=== PATIENT | male | born 1965 | race African-American/Black ===

== ENCOUNTER 2016-05-26 13:45 | Emergency (ER) | payer SELFPAY ==
--- NOTE | 2016-05-26 14:05 | ER Document Report ---
ED Medical Screen (RME) - General Stated Complaint: CHEST PAIN,COUGH,SORE THROAT Time seen by provider: 14:04 Mode of Arrival: Ambulatory Information source: Patient Notes: 50-year-old male presents to ED for cough congestion runny nose last until he had a fever was last week chest discomfort from all the coughing. I have greeted and performed a rapid initial assessment of this patient. A comprehensive ED assessment and evaluation of the patient, analysis of test results and completion of medical decision making process will be conducted by an additional ED providers. TRAVEL OUTSIDE OF THE [place] IN LAST 30 DAYS: No - Related Data Allergies/Adverse Reactions: No Known Allergies Allergy (Verified 06/15/11 15:58) Past Medical History - Past Medical History Cardiac Medical History: Reports: Hx Hypertension Pulmonary Medical History: Reports: Hx Asthma - Immunizations Hx Diphtheria, Pertussis, Tetanus Vaccination: Yes - 2010 Physical Exam - Vital signs Vitals: Temp Pulse Resp BP Pulse Ox 97.4 F 108 H 20 151/96 H 98 05/26/16 13:55 05/26/16 13:55 05/26/16 13:55 05/26/16 13:55 05/26/16 13:55 Course - Vital Signs Vital signs: Temp Pulse Resp BP Pulse Ox 97.4 F 108 H 20 151/96 H 98 05/26/16 13:55 05/26/16 13:55 05/26/16 13:55 05/26/16 13:55 05/26/16 13:55
[2016-05-26] MEDS ORDERED: ASPIRIN 81 MG TABLET, CHEWABLE PO ONE (14:07)
--- NOTE | 2016-05-26 14:26 | ER Document Report ---
ED General - General Chief Complaint: Flu Symptoms Stated Complaint: CHEST PAIN,COUGH,SORE THROAT Mode of Arrival: Ambulatory Information source: Patient Notes: Patient presents to the emergency department with complaints of cough sore throat, headache cold symptoms for the past 2 weeks. He reports chest pain mostly on his left side for the last 2 days, especially when he lays on his left side. reports he hasn't been sleeping at all for the last 2 nights. Denies fever and diarrhea but reports he's been vomiting/gagging from the cough. Patient also reports he has a bad headache. Denies history of cardiac disease. Reports history of high blood pressure. Also reports brother with pacemaker at the age of 5858 years old. Father from prostate cancer. Patient does smoke and is overweight. TRAVEL OUTSIDE OF THE [place] IN LAST 30 DAYS: No - HPI Onset: Other - cough 2 weeks, cp 2 days Quality of pain: Achy Pain Level: 4 - CORREIA Associated symptoms: Chest pain, Nonproductive cough, Headache, Sore throat Exacerbated by: Denies Relieved by: Denies Similar symptoms previously: No Recently seen / treated by doctor: No - Related Data Allergies/Adverse Reactions: No Known Allergies Allergy (Verified 05/26/16 14:07) Past Medical History - General Information source: Patient - Social History Smoking Status: Current Every Day Smoker Cigarette use (# per day): Yes - 1PPW Chew tobacco use (# tins/day): No Frequency of alcohol use: None Drug Abuse: None Family History: CAD - BROTHER, Malignancy Patient has suicidal ideation: No Patient has homicidal ideation: No - Past Medical History Cardiac Medical History: Reports: Hx Hypertension Pulmonary Medical History: Reports: Hx Asthma Renal/ Medical History: Denies: Hx Peritoneal Dialysis - Immunizations Hx Diphtheria, Pertussis, Tetanus Vaccination: Yes - 2010 Review of Systems - Review of Systems Notes: Review HPI for review of systems., All other systems negative Physical Exam - Vital signs Vitals: Temp Pulse Resp BP Pulse Ox 97.4 F 108 H 20 151/96 H 98 05/26/16 13:55 05/26/16 13:55 05/26/16 13:55 05/26/16 13:55 05/26/16 13:55 - Notes Notes: PHYSICAL EXAMINATION: GENERAL: Well-appearing and in no acute distress HEAD: Atraumatic, normocephalic. EYES: Pupils equal round , extraocular movements intact, sclera anicteric, conjunctiva are normal. ENT: nares patent, oropharynx clear without exudates. Moist mucous membranes. NECK: Normal range of motion, supple without lymphadenopathy LUNGS: CTAB and equal. No wheezes rales or rhonchi. HEART: Regular rate and rhythm without murmurs ABDOMEN: Soft, no tenderness. No guarding, no rebound EXTREMITIES: Normal range of motion, no pitting edema. No cyanosis. NEUROLOGICAL: Cranial nerves grossly intact. Normal sensory/motor exams. PSYCH: Normal mood, normal affect. SKIN: Warm, Dry, normal turgor, no rashes or lesions noted Course - Re-evaluation Re-evalutation: 05/26/16 17:53 Pt waiting on second troponin, denies cp. 05/26/16 18:24 I have consulted the attending provider dr namita zaragoza per [facility] guidelines 05/26/16 19:04 dr zaragoza in to assess patient. reports if second troponin neg, dc patient, fu with pcp 05/26/16 19:23 second troponin neg. Presentation of chest pain in an otherwise well-appearing patient. Low clinical suspicion for ACS given the clinical history, exam, EKG without ST elevation or depressions, and negative initial troponin. Heart score less than or equal to 3. PE also seems unlikely given the clinical history, absence of tachycardia or dyspnea. Patient's PERC criteria is negative. Chest x-ray without evidence of pneumothorax or pneumonia. No widened mediastinum. Inferior dissection also seems unlikely given history, symmetric pulses, chest x -ray and vitals. Given the reassuring evaluation, will plan for discharge home at this time with return precautions and follow-up recommendations. Patient has been instructed to return if symptoms worsen or change in any way. HEART score- 3 History= 0 ECG = SAT Age =1 Risk Factors= 2 Troponin= 0 Total 3 Chest pain in a patient without evidence of cardiac or other serious etiology during the workup today. I discussed with patient that based on age, risk factors and emergency department testing, the likelihood that his symptoms are related to his heart is very low (estimated risk of heart attack or over the next 30 days of less than 1% ). The patient demonstrates decision-making capacity and has verbalized an understanding of these risks to me. Based on this, the patient was instructed to follow-up up as an outpatient. Usual chest pain return precautions reviewed. Patient verbalized understanding. - Vital Signs Vital signs: Temp Pulse Resp BP Pulse Ox 97.9 F 108 H 23 H 153/98 H 96 05/26/16 17:14 05/26/16 13:55 05/26/16 19:01 05/26/16 19:01 05/26/16 19:01 - Laboratory Result Diagrams: 05/26/16 14:54 05/26/16 14:54 Laboratory results interpreted by me: 05/26/16 05/26/16 14:54 15:53 Creatine Kinase 251 H Urine Protein 100 H - Diagnostic Test Radiology reviewed: Image reviewed, Reports reviewed - IMPRESSION: NO SIGNIFICANT RADIOGRAPHIC FINDING IN THE CHEST. - EKG Interpretation by Me Rate: Tachycardia When compared to previous EKG there are: No significant change Discharge - Discharge Clinical Impression: Cough, Sore throat, Elevated blood pressure reading, chest pain of unclear cause Condition: Stable Disposition: HOME, SELF-CARE Instructions: Acetaminophen, Sore Throat ([facility]), Family Physicians / Practices, Chest Pain of Unclear Cause ([facility]) Additional Instructions: *You have been evaluated for a cough, sore throat, chest pain of unclear cause *Quit smoking *Warm salt water gargles and throat lozenges for comfort for your sore throat *Monitor your blood pressure. Your blood pressure was elevated today. This may be because you were anxious, in pain or because you need medication. It is important to follow up with your primary care provider for full evaluation. *Follow-up with a primary care provider this week for evaluation and recheck *Return to ED for worsening condition change, needs Forms: Elevated Blood Pressure, Smoking Cessation Education, Return to Work
[2016-05-26] MEDS ORDERED: IBUPROFEN 800 MG TABLET PO ONE (14:43)
[2016-05-26 15:09] LABS: ABSOLUTE BASOPHILS # (AUTO) 0.1 10^3/uL (0.0-0.2); ABSOLUTE EOSINOPHILS # (AUTO) 0.1 10^3/uL (0.0-0.6); ABSOLUTE LYMPHOCYTES (AUTO) 2.3 10^3/uL (0.5-4.7); ABSOLUTE MONOCYTES (AUTO) 1.3 10^3/uL (0.1-1.4); ABSOLUTE NEUT (AUTO) 6.6 10^3/uL (1.7-8.2); BASOPHILS % (AUTO) 0.6 % (0-2); EOSINOPHILS % (AUTO) 1.2 % (0-6); HEMATOCRIT 42.6 % (37.9-51.0); HEMOGLOBIN 14.2 g/dL (13.5-17.0); LYMPHOCYTES % (AUTO) 22.3 % (13-45); MEAN CORPUSCULAR HGB CONC 33.2 g/dL (32.0-36.0); MEAN CORPUSCULAR VOLUME 84 fl (80-97); MONOCYTES % (AUTO) 12.4 % (3-13); RED BLOOD COUNT 5.06 10^6/uL (4.35-5.55); RED CELL DISTRIBUTION WIDTH 12.9 % (11.5-14.0); SEGMENTED NEUTROPHILS % (AUTO) 63.5 % (42-78); WHITE BLOOD COUNT 10.4 10^3/uL (4.0-10.5)
[2016-05-26 15:28] LABS: ALANINE AMINOTRANSFERASE 39 U/L (21-72); ALBUMIN 4.5 g/dL (3.5-5.0); ALKALINE PHOSPHATASE 77 U/L (38-126); ANION GAP 11 (5-19); ASPARTATE AMINO TRANSFERASE 22 U/L (17-59); BILIRUBIN,TOTAL 0.7 mg/dL (0.2-1.3); BLOOD UREA NITROGEN 13 mg/dL (7-20); CALCIUM 9.8 mg/dL (8.4-10.2); CARBON DIOXIDE 27 mmol/L (22-30); CHLORIDE 103 mmol/L (98-107); CREATINE KINASE 251 U/L (55-170); CREATININE RESULT 1.25 mg/dL (0.52-1.25); GLUCOSE 103 mg/dL (75-110); POTASSIUM 4.2 mmol/L (3.6-5.0); SODIUM 140.9 mmol/L (137-145)
[2016-05-26 15:40] LABS: CREATINE KINASE MB 0.34 ng/mL (<4.55); TROPONIN I < 0.012 ng/mL
[2016-05-26 16:15] LABS: APPEARANCE,URINE CLEAR; BILIRUBIN,URINE NEGATIVE (NEGATIVE); GLUCOSE, URINE NEGATIVE (NEGATIVE); KETONES,URINE NEGATIVE (NEGATIVE); LEUKOCYTE ESTERASE,URINE NEGATIVE (NEGATIVE); NITRITE,URINE NEGATIVE (NEGATIVE); PROTEIN,URINE 100 mg/dL (NEGATIVE); URINE SPECIFIC GRAVITY 1.023; UROBILINOGEN,URINE NEGATIVE mg/dL (<2.0)
--- NOTE | 2016-05-26 17:41 | EKG REPORT ---
SEVERITY:- ABNORMAL ECG - SINUS TACHYCARDIA LEFT ANTERIOR FASCICULAR BLOCK LEFT VENTRICULAR HYPERTROPHY : Confirmed by: Penny Up MD 26-May-2016 17:39:43
[2016-05-26 19:13] VITALS: BP 153/98
== END 2016-05-26 19:42 | disposition home or self-care (01) ==
LOC: ER 13:45
DX: R07.9 Chest pain, unspecified (principal); R05 Cough; J02.9 Acute pharyngitis, unspecified; R51 Headache; R00.0 Tachycardia, unspecified; I10 Essential (primary) hypertension; J45.909 Unspecified asthma, uncomplicated; F17.210 Nicotine dependence, cigarettes, uncomplicated; E66.3 Overweight; Z68.32 Body mass index [BMI] 32.0-32.9, adult; Z82.49 Family history of ischemic heart disease and other diseases of the circulatory system
CPT/HCPCS: 36415; 71020; 80053; 81001; 82550; 82553; 84484; 85025; 87070; 87880; 93005; 93010; 99284

== ENCOUNTER 2017-04-14 11:31 | Emergency (ER) | payer OTHER ==
[2017-04-14 11:44] VITALS: BP 142/94
[2017-04-14] MEDS ORDERED: IBUPROFEN 800 MG TABLET PO ONE (13:11)
--- NOTE | 2017-04-14 13:18 | ER Document Report ---
ED Extremity Problem, Upper - General Chief Complaint: Shoulder Pain Stated Complaint: SHOULDER PAIN Time Seen by Provider: 04/14/17 12:51 Mode of Arrival: Ambulatory Information source: Patient Notes: 51-year-old male presents to ED for complaint of left shoulder pain. He states he was picking his 4-year-old child up in his car seat out of the backseat of the car about a month ago and injured his arm. He states his pain has continued since then and he has not been to a doctor to get it checked out yet. He is able to move his arm around but when he tries to pick anything up it hurts. He is alert oriented no acute distress at this time. He is speaking in full sentences walks with a steady gait. TRAVEL OUTSIDE OF THE [place] IN LAST 30 DAYS: No - HPI Patient complains to provider of: Left, Shoulder Onset: Other - Month ago Recent injury: Possibly Where: Home, Outdoors Quality of pain: Sharp Severity of pain: Persistent Pain Level: 5 Context: Other - Lifting a 4-year-old child out of the car - Related Data Allergies/Adverse Reactions: No Known Allergies Allergy (Verified 05/26/16 14:07) Past Medical History - General Information source: Patient - Social History Smoking Status: Former Smoker - Uses a vapor cigarettes now Cigarette use (# per day): No Chew tobacco use (# tins/day): No Smoking Education Provided: No Frequency of alcohol use: Social Drug Abuse: None Lives with: Family Family History: Arthritis, CAD - BROTHER, Hyperlipidemia, Hypertension, Malignancy, Thyroid Disfunction. denies: COPD, CVA, DM - Past Medical History Cardiac Medical History: Reports: Hx Hypertension Pulmonary Medical History: Reports: Hx Asthma EENT Medical History: Reports: None Neurological Medical History: Reports: None Endocrine Medical History: Reports: None Renal/ Medical History: Reports: None Malignancy Medical History: Reports None GI Medical History: Reports: None Musculoskeltal Medical History: Reports None Skin Medical History: Reports None Psychiatric Medical History: Reports: None Traumatic Medical History: Reports: None Infectious Medical History: Reports: None Surgical Hx: Negative Past Surgical History: Reports: None - Immunizations Immunizations up to date: Yes Hx Diphtheria, Pertussis, Tetanus Vaccination: Yes - 2010 Review of Systems - Review of Systems Constitutional: No symptoms reported EENT: No symptoms reported Cardiovascular: No symptoms reported Respiratory: No symptoms reported Gastrointestinal: No symptoms reported Genitourinary: No symptoms reported Male Genitourinary: No symptoms reported Musculoskeletal: Other - Shoulder pain Skin: No symptoms reported Hematologic/Lymphatic: No symptoms reported Neurological/Psychological: No symptoms reported -: Yes All other systems reviewed and negative Physical Exam - Vital signs Vitals: Temp Pulse Resp BP Pulse Ox 98.2 F 92 14 142/94 H 96 04/14/17 11:43 04/14/17 11:43 04/14/17 11:43 04/14/17 11:43 04/14/17 11:43 Interpretation: Normal - General General appearance: Appears well, Alert - HEENT Head: Normocephalic, Atraumatic Eyes: Normal Pupils: PERRL - Respiratory Respiratory status: No respiratory distress Chest status: Nontender Breath sounds: Normal Chest palpation: Normal - Cardiovascular Rhythm: Regular Heart sounds: Normal auscultation Murmur: No - Abdominal Inspection: Normal Distension: No distension Bowel sounds: Normal Tenderness: Nontender Organomegaly: No organomegaly - Back Back: Normal, Nontender - Extremities General upper extremity: Normal inspection, Nontender, Normal color, Normal ROM , Normal temperature General lower extremity: Normal inspection, Normal color, Normal ROM, Normal temperature, Normal weight bearing. No: Girish's sign Shoulder: Tender - Just in front of the left shoulder. No: Limited ROM - Pain with range of motion to just in front of the left shoulder - Neurological Neuro grossly intact: Yes Cognition: Normal Orientation: AAOx4 Ramya Coma Scale Eye Opening: Spontaneous [place] Coma Scale Verbal: Oriented [place] Coma Scale Motor: Obeys Commands [place] Coma Scale Total: 15 Speech: Normal Motor strength normal: LUE, RUE, LLE, RLE Sensory: Normal - Psychological Associated symptoms: Normal affect, Normal mood - Skin Skin Temperature: Warm Skin Moisture: Dry Skin Color: Normal Course - Re-evaluation Re-evalutation: 04/14/17 13:18 Left shoulder x-ray ordered and patient treated with ibuprofen and will reevaluate after the test are completed. 04/14/17 14:24 Discussed x-ray with patient. Patient was offered a prescription of ibuprofen and he refused. Patient was instructed on use of ice shoulder exercises and to follow-up with the orthopedic. Patient was discharged home. - Vital Signs Vital signs: Temp Pulse Resp BP Pulse Ox 98.2 F 92 14 142/94 H 96 04/14/17 11:43 04/14/17 11:43 04/14/17 11:43 04/14/17 11:43 04/14/17 11:43 - Diagnostic Test Radiology reviewed: Image reviewed, Reports reviewed Discharge - Discharge Clinical Impression: Injury of left shoulder Qualifiers: Encounter type: initial encounter Qualified Code(s): S49.92XA - Unspecified injury of left shoulder and upper arm, initial encounter Condition: Stable Disposition: HOME, SELF-CARE Additional Instructions: Shoulder Injury You have injured your shoulder. This usually results from stretching or tearing of the tendons during trauma. Time and protection are required in order to heal properly. Many injuries are quite disabling, and should be taken seriously. Initial treatment includes cold packs and a sling to rest the shoulder. The physician has assessed the seriousness of your injury, and has outlined a treatment plan. Understand that this treatment may change, depending on how you progress. If a re-examination was recommended, it is important that you follow up as instructed. Some shoulder injuries (such as partial tear of the rotator cuff) are only suspected after you've failed to improve. Call us if there's severe pain, numbness, or loss of function. Exercise Program for the Shoulder Since the shoulder moves in so many directions, the joint attachment is weak. Muscles provide most of the stability to the shoulder. You must exercise your shoulder to prevent painful instability or stiffening. PASSIVE - These may be begun within a few days of the injury. While standing, lean forward, allowing the arm to hang down towards the floor. Move the arm in small circles while slowly twisting your chest towards and away from the hanging arm. Do this for one minute. ACTIVE - These may be performed when the doctor gives permission. Begin with the arms at the sides. Raise the arms forward (shoulder's width apart) until they reach shoulder level. Then slowly swing both arms back until they are aiming straight out away from each other. Then bring them forward again, and finally, lower them to your sides. Repeat 20 to 30 times. As you improve, put weights in your hands for the exercise. Start with one pound, and work up to 10 pounds. Never use more than is comfortable. Athletes may work up to 30 pounds. USE OF MTHN-YKE-ATBCTOO IBUPROFEN: Ibuprofen (Advil, Nuprin, Medipren, Motrin IB) is a medication for fever and pain control. In addition, it has anti- inflammatory effects which may be beneficial, especially in the treatment of injuries. It's best to take ibuprofen with food. Persons with ulcer disease or allergy to aspirin should notify their physician of this before taking ibuprofen. Ibuprofen can be given every four to six hours, for a total of four doses daily. Age Pain or fever dose Antiinflammatory dose 6-8 yr 200 mg (1 tab) 200 mg (1 tab) 9-11 yr 200 mg (1 tab) 200-400 mg (1-2 tab) 11-14 yr 200-400 mg (1-2 tab) 400 mg (2 tab) 15-adult 400 mg (2 tab) 600 mg (3 tab) Ice Packs Apply ice packs frequently against the painful area. Many different schedules are recommended, such as "20 minutes on, 20 minutes off" or "one hour ice, two hours rest." If you need to work, you may need to go longer between ice treatments. You should plan to have the area ice packed AT LEAST one fourth of the time. The ice should be applied over the wrap, tape, or splint, or over a layer of cloth -- not directly against the skin. Some ice bags have a built-in cloth and can be put directly on the skin. FOLLOW-UP CARE: If you have been referred to a physician for follow-up care, call the physician s office for an appointment as you were instructed or within the next two days. If you experience worsening or a significant change in your symptoms, notify the physician immediately or return to the Emergency Department at any time for re-evaluation. Forms: Elevated Blood Pressure Referrals: NURIS PARKER DO [ACTIVE STAFF] - Follow up as needed
--- NOTE | 2017-04-14 13:30 | RADIOLOGY REPORT (SQ) ---
EXAM DESCRIPTION: SHOULDER LEFT 2 OR MORE VIEWS COMPLETED DATE/TIME: 04/14/2017 1:22 pm REASON FOR STUDY: pain in shoulder area COMPARISON: None. NUMBER OF VIEWS: Three views. TECHNIQUE: Internal rotation, external rotation, and Y view images acquired of the left shoulder. LIMITATIONS: None. FINDINGS: MINERALIZATION: Normal. BONES: No acute fracture or dislocation. No worrisome bone lesions. JOINTS: No dislocation. VISUALIZED LUNGS AND RIBS: No pneumothorax. No rib fracture. SOFT TISSUES: No radiopaque foreign body. OTHER: No other significant finding. IMPRESSION: NEGATIVE STUDY OF THE LEFT SHOULDER. NO RADIOGRAPHIC EVIDENCE OF ACUTE INJURY. TECHNICAL DOCUMENTATION: JOB ID: [id number] [employer]- All Rights Reserved
== END 2017-04-14 14:25 | disposition home or self-care (01) ==
LOC: ER 11:31
DX: S49.92XA Unspecified injury of left shoulder and upper arm, initial encounter (principal); M25.512 Pain in left shoulder; X58.XXXA Exposure to other specified factors, initial encounter; I10 Essential (primary) hypertension; J45.909 Unspecified asthma, uncomplicated; F17.290 Nicotine dependence, other tobacco product, uncomplicated
CPT/HCPCS: 99283

== ENCOUNTER → 2017-04-27 | Outpatient (CLI) | payer OTHER ==
--- NOTE | 2017-04-27 14:55 | RADIOLOGY REPORT (SQ) ---
EXAM DESCRIPTION: MRI LT UPPER JOINT WITHOUT COMPLETED DATE/TIME: 04/27/2017 2:33 pm REASON FOR STUDY: LEFT SHOULDER PAIN M25.512 PAIN IN LEFT SHOULDER COMPARISON: Recent radiographs. TECHNIQUE: Left shoulder images acquired and stored on PACS. Multiplanar imaging to include fat sens itive sequences such as T1, water sensitive sequences such as FST2/STIR, cartilage sensitive sequence s such as FSPD/gradient-echo sequences. LIMITATIONS: None. FINDINGS: BONE MARROW AND CORTEX: No worrisome bone lesions or marrow replacement. No occult fractur es. JOINT OR BURSAL EFFUSION: No significant joint or bursal fluid. No suggestion of loose bodies. GLENO-HUMERAL ARTICULATION: Normal articulation. No subluxation. No cystic change. No osteophytes or cartilage loss. ACROMION AND AC JOINT: No widening. Mild -moderate degenerative arthropathy with associated predom inately dorsal overgrowth. Type 2 acromion without mukund subacromial compromise or spurring. ROTATOR CUFF AND INTERVAL: Mild cuff tendinosis is suggested. No high-grade partial or full-thicknes s tear detected, however. No cuff muscle atrophy. Mild scar/edema may be present in the rotator interval. This can be associated with adhesive capsuli tis. LABRUM AND BICEPS LABRAL COMPLEX: Abnormal heterogeneous signal in the superior labrum and biceps a nchor, relatively macerated appearance. Long head biceps tendon intact. REMAINDER OF LABRUM AND IGHL : Probable tear with abnormal focal hyperintense T2 signal along the ant erior inferior labrum. PERIARTICULAR AND ADJACENT SOFT TISSUES: No masses or abnormal nodes. OTHER: No other significant finding. IMPRESSION: 1. No high-grade partial or full thickness cuff tear. 2. Labral findings as above. Fitzgerald spect slap tear in the anterior inferior labral tear. Biceps tendon intact. TECHNICAL DOCUMENTATION: JOB ID: [id number] [employer]- All Rights Reserved
== END ==
LOC: RAD 13:37
PROVIDERS: ATTEND Physician Assistant Medical
DX: M25.512 Pain in left shoulder (principal)

== ENCOUNTER 2018-02-22 17:18 | Emergency (ER) | payer OTHER ==
[2018-02-22 17:24] VITALS: BP 162/94
--- NOTE | 2018-02-22 18:06 | ER Document Report ---
ED ENT - General Mode of Arrival: Ambulatory Information source: Patient TRAVEL OUTSIDE OF THE [place] IN LAST 30 DAYS: No - General Chief Complaint: Ear Pain Stated Complaint: EAR PAIN Time Seen by Provider: 02/22/18 17:59 Notes: 52-year-old male who presents to the emergency department today with complaints of right-sided ear and facial pain. Patient states the pain is exacerbated with chewing, opening and closing of the jaw, and when lying down to sleep at night. Patient has had these symptoms for approximately 2 weeks. Patient has associated nasal congestion. Patient states it is "hard to swallow liquids sometimes" but denies any difficulty with swallowing solids. (MIGUEL A LEOS) - Related Data Allergies/Adverse Reactions: No Known Allergies Allergy (Verified 05/26/16 14:07) Past Medical History - General Information source: Patient - Social History Smoking Status: Current Every Day Smoker Cigarette use (# per day): Yes Chew tobacco use (# tins/day): No Frequency of alcohol use: Occasional Drug Abuse: None Lives with: Family Family History: Arthritis, CAD - BROTHER, Hyperlipidemia, Hypertension, Malignancy, Thyroid Disfunction Patient has suicidal ideation: No Patient has homicidal ideation: No - Past Medical History Cardiac Medical History: Reports: Hx Hypertension Pulmonary Medical History: Reports: Hx Asthma Surgical Hx: Negative - Immunizations Immunizations up to date: Yes Hx Diphtheria, Pertussis, Tetanus Vaccination: Yes - 2010 Review of Systems - Review of Systems Constitutional: No symptoms reported EENT: See HPI, Ear pain - right, Nose congestion Cardiovascular: No symptoms reported Respiratory: No symptoms reported Gastrointestinal: No symptoms reported Genitourinary: No symptoms reported Male Genitourinary: No symptoms reported Musculoskeletal: No symptoms reported Skin: No symptoms reported Hematologic/Lymphatic: No symptoms reported Neurological/Psychological: No symptoms reported -: Yes All other systems reviewed and negative Physical Exam - Vital signs Vitals: Temp Pulse Resp BP Pulse Ox 97.5 F 96 17 162/94 H 99 02/22/18 17:22 02/22/18 17:22 02/22/18 17:22 02/22/18 17:22 02/22/18 17:22 - Notes Notes: PHYSICAL EXAM GENERAL: Alert, interacts well. No acute distress. HEAD: Normocephalic, atraumatic. EYES: Pupils equal, round, and reactive to light. Extraocular movements intact. ENT: Oral mucosa moist, tongue midline. No posterior oropharynx erythema or exudate. Clear fluid behind the right TM with air bubbles and bulging without erythema. Clear fluid behind left TM without erythema. Right-sided turbinate edema. NECK: Full range of motion. Supple. Trachea midline. LUNGS: No respiratory distress. EXTREMITIES: Moves all 4 extremities spontaneously. NEUROLOGICAL: Alert and oriented x3. Normal speech. PSYCH: Normal affect, normal mood. SKIN: Warm, dry, normal turgor. No rashes or lesions noted. (MIGUEL A LEOS) Course - Re-evaluation Re-evalutation: 02/22/18 18:54 No evidence of acute infection, no indication for antibiotics, prescribed decongestants and nasal steroids. Counseled on rechecking his blood pressure when he is not anxious and in pain. Discharged home. (RADHA LEROY) - Vital Signs Vital signs: Temp Pulse Resp BP Pulse Ox 97.5 F 96 17 162/94 H 99 02/22/18 17:22 02/22/18 17:22 02/22/18 17:22 02/22/18 17:22 02/22/18 17:22 Discharge - Discharge Clinical Impression: Right ear pain, Acute serous otitis media of right ear without rupture Condition: Stable Disposition: HOME, SELF-CARE Additional Instructions: You have fluid in your right ear, there is no evidence of infection. Please use pseudoephedrine as directed on the box during the day as a decongestant and use Benadryl (diphenhydramine) at night as a decongestant to help this to drain. Please also use nasal steroid such as Nasonex 1 squirt per nostril twice a day to help decrease the swelling in your nose and allow your ear to drain. Return to the emergency department should you have fluid draining out of your ear, increasing pain, fevers or any new or concerning symptoms. Prescriptions: Mometasone Furoate [Nasonex] 1 spray NS Q12 #1 spray.pump Referrals: FLAKITO DE ANDA PA-C [Primary Care Provider] - Follow up as needed Scribe Attestation: 02/22/18 18:55 I personally performed the services described in the documentation, reviewed and edited the documentation which was dictated to the scribe in my presence, and it accurately records my words and actions. (RADHA LEROY) Scribe Documentation - Scribe Written by Facundo:: Facundo Wilson, 02/22/2018 570 acting as scribe for :: Gris
== END 2018-02-22 18:10 | disposition home or self-care (01) ==
LOC: ER 17:18
DX: H65.01 Acute serous otitis media, right ear (principal); H92.01 Otalgia, right ear; R51 Headache; R09.81 Nasal congestion; F17.210 Nicotine dependence, cigarettes, uncomplicated; I10 Essential (primary) hypertension; J45.909 Unspecified asthma, uncomplicated
CPT/HCPCS: 99282

== ENCOUNTER → 2018-03-25 | Outpatient (CLI) | payer OTHER ==
[2018-03-25 12:15] LABS: ALANINE AMINOTRANSFERASE 70 U/L (21-72); ALBUMIN 4.4 g/dL (3.5-5.0); ALKALINE PHOSPHATASE 55 U/L (38-126); ANION GAP 11 (5-19); ASPARTATE AMINO TRANSFERASE 36 U/L (17-59); BILIRUBIN,DIRECT 0.2 mg/dL (0.0-0.4); BILIRUBIN,TOTAL 0.6 mg/dL (0.2-1.3); BLOOD UREA NITROGEN 16 mg/dL (7-20); CARBON DIOXIDE 26 mmol/L (22-30); CHLORIDE 103 mmol/L (98-107); CHOLESTEROL 253.94 mg/dL (0-200); GLUCOSE 106 mg/dL (75-110); POTASSIUM 4.8 mmol/L (3.6-5.0); SODIUM 139.6 mmol/L (137-145); TOTAL PROTEIN 7.8 g/dL (6.3-8.2); TRIGLYCERIDES 158 mg/dL (<150)
[2018-03-25 12:26] LABS: DIRECT LDL 181 mg/dL (<100)
[2018-03-25 12:46] LABS: VLDL CHOLESTEROL 31.6 mg/dL (10-31)
== END ==
LOC: OD 10:59
PROVIDERS: ATTEND Family Medicine
DX: Z13.1 Encounter for screening for diabetes mellitus (principal); Z12.5 Encounter for screening for malignant neoplasm of prostate; Z13.220 Encounter for screening for lipoid disorders
CPT/HCPCS: 36415; 80053; 80061; 84153

== ENCOUNTER → 2018-04-13 | Outpatient (CLI) | payer OTHER ==
--- NOTE | 2018-04-14 00:08 | EKG REPORT ---
SEVERITY:- ABNORMAL ECG - SINUS RHYTHM LEFT ANTERIOR FASCICULAR BLOCK : Confirmed by: Merced Perkins 14-Apr-2018 00:07:43
== END ==
LOC: OD 09:14
PROVIDERS: ATTEND Orthopaedic Surgery
DX: Z01.810 Encounter for preprocedural cardiovascular examination (principal); Z01.89 Encounter for other specified special examinations
CPT/HCPCS: 93005; 93010

== ENCOUNTER → 2018-12-07 | Outpatient (CLI) | payer OTHER ==
--- NOTE | 2018-12-07 10:31 | RADIOLOGY REPORT (SQ) ---
EXAM DESCRIPTION: LUMBAR SPINE COMPLETE COMPLETED DATE/TIME: 12/07/2018 10:14 am REASON FOR STUDY: LUMBAR RADICULOPATHY M54.6 PAIN IN THORACIC SPINE COMPARISON: None. NUMBER OF VIEWS: Five views including obliques. TECHNIQUE: AP, lateral, oblique, and sacral radiographic images acquired of the lumbar spine. LIMITATIONS: None. FINDINGS: MINERALIZATION: Normal. SEGMENTATION: Normal. No transitional anatomy. ALIGNMENT: Normal. VERTEBRAE: Maintained height. No fracture or worrisome bone lesion. DISCS: Preserved height. No significant osteophytes or end plate irregularity. POSTERIOR ELEMENTS: Pedicles and facets are intact. No pars defect or posterior arch defects. HARDWARE: None in the spine. PARASPINAL SOFT TISSUES: Normal. PELVIS: Intact as visualized. No fractures or worrisome bone lesions. SI joints intact. OTHER: No other significant finding. IMPRESSION: NORMAL 5 VIEW LUMBAR SPINE. TECHNICAL DOCUMENTATION: JOB ID: [id number] [employer]- All Rights Reserved Reading location - IP/workstation name: [email or web address]
--- NOTE | 2018-12-07 10:32 | RADIOLOGY REPORT (SQ) ---
EXAM DESCRIPTION: SACRUM AND COCCYX COMPLETED DATE/TIME: 12/07/2018 10:14 am REASON FOR STUDY: LUMBAR RADICULOPATHY M54.6 PAIN IN THORACIC SPINE COMPARISON: None. NUMBER OF VIEWS: Three views. TECHNIQUE: AP, lateral, and tilt views of the sacrum and coccyx. LIMITATIONS: None. FINDINGS: MINERALIZATION: Normal. BONES: No acute fracture or dislocation. No worrisome bone lesions. SOFT TISSUES: No soft tissue swelling. No foreign body. OTHER: No other significant finding. IMPRESSION: NEGATIVE STUDY OF THE SACRUM AND COCCYX. TECHNICAL DOCUMENTATION: JOB ID: [id number] [employer]- All Rights Reserved Reading location - IP/workstation name: [email or web address]
== END ==
LOC: OD 09:55
PROVIDERS: ATTEND Family Medicine Geriatric Medicine
DX: M54.16 Radiculopathy, lumbar region (principal)
CPT/HCPCS: 72110; 72220

== ENCOUNTER → 2018-12-27 | Outpatient (CLI) | payer OTHER ==
--- NOTE | 2018-12-27 15:59 | RADIOLOGY REPORT (SQ) ---
EXAM DESCRIPTION: MRI LUMBAR SPINE WITHOUT COMPLETED DATE/TIME: 12/27/2018 2:49 pm REASON FOR STUDY: (M54.16)RADICULOPATHY, LUMBAR REGION M54.16 RADICULOPATHY, LUMBAR REGION COMPARISON: Lumbar spine five views 12/07/2018 TECHNIQUE: Sagittal and Axial imaging includes T1, T2, STIR and gradient echo sequences. Coronal T2/ HASTE imaging. LIMITATIONS: Patient would not continue the exam after sagittal imaging. No axial images FINDINGS: SEGMENTATION: No transitional anatomy. The lowest well-developed disc space is labeled L5- S1. ALIGNMENT: Anatomic. VERTEBRAE: Intact. BONE MARROW: Normal. No marrow replacement or reactive changes. DISC SIGNAL: Normal. No significant abnormal signal or loss of height. POSTERIOR ELEMENTS: Diffuse facet arthropathy is seen from L2-3 through L5-S1 HARDWARE: None in the spine. CORD AND CONUS: Normal in size and signal intensity. Conus at the L2 level. SOFT TISSUES: No aortic aneurysm seen. No bulky retroperitoneal adenopathy or mass. No paraspinal mas s or fluid. L1-L2: No significant spinal stenosis or exit foraminal stenosis. L2-L3: No significant spinal stenosis or exit foraminal stenosis. Mild bilateral facet arthropathy L3-L4: No significant spinal stenosis or exit foraminal stenosis. Moderate bilateral facet arthropat hy L4-L5: Mild diffuse posterior disc bulging and moderate bilateral facet and ligament hypertrophy caus e mild to moderate central canal narrowing. Partial effacement of the CSF around the lumbar nerve ro ots. Mild bilateral foraminal narrowing without exiting L4 nerve root impingement L5-S1: No significant spinal stenosis or exit foraminal stenosis. Moderate bilateral facet hypertrop hy LOWER THORACIC: Incompletely imaged. No stenosis seen. SACRUM: Visualized upper sacrum intact. OTHER: No other significant findings. IMPRESSION: Mild to moderate central canal stenosis at L4-5 from broad diffuse disc bulge and bulky bilateral facet and ligament hypertrophy. Limited study, patient would not continue imaging for axial images through the lumbar spine. If surg maría is contemplated in this patient, consider CT scanning of the lumbar spine TECHNICAL DOCUMENTATION: JOB ID: [id number] [employer]- All Rights Reserved Reading location - IP/workstation name: [email or web address]
== END ==
LOC: RAD 12-20 13:58
PROVIDERS: ATTEND Family Medicine
DX: M54.16 Radiculopathy, lumbar region (principal)
CPT/HCPCS: 72148

== ENCOUNTER 2019-05-24 11:43 | Emergency (ER) | payer OTHER ==
[2019-05-24 12:31] VITALS: BP 143/83
[2019-05-24] MEDS ORDERED: ASPIRIN 81 MG TABLET, CHEWABLE PO ONE ×2 (12:34→15:01)
--- NOTE | 2019-05-24 12:36 | ER Document Report ---
ED Medical Screen (RME) - General Chief Complaint: Chest Pain Stated Complaint: CHEST PAIN Time Seen by Provider: 05/24/19 12:29 Primary Care Provider: KEN BENITEZ MD [Primary Care Provider] - Follow up as needed Notes: Patient is a 53-year-old male who presents to the emergency department with a chief complaint of chest pain. His pain started at 8:00 this morning when he woke up. Describes the pain as a sharp pain on the left side of his chest. Denies any difficulty breathing. Denies any vomiting. Exam: Sinus tachycardia on twelve-lead EKG. Heart rate 103. I have greeted and performed a rapid initial assessment of this patient. A comprehensive ED assessment and evaluation of the patient, analysis of test results and completion of medical decision making process will be conducted by an additional ED providers. TRAVEL OUTSIDE OF THE [place] IN LAST 30 DAYS: No - Related Data Allergies/Adverse Reactions: No Known Allergies Allergy (Verified 05/26/16 14:07) Home Medications: Atorvastatin, Percocet Past Medical History - Past Medical History Cardiac Medical History: Reports: Hx Hypertension Pulmonary Medical History: Reports: Hx Asthma Renal/ Medical History: Denies: Hx Peritoneal Dialysis - Immunizations Immunizations up to date: Yes Hx Diphtheria, Pertussis, Tetanus Vaccination: Yes - 2010 Physical Exam - Vital signs Vitals: Temp Pulse Resp BP Pulse Ox 98.0 F 104 H 16 143/83 H 97 05/24/19 12:30 05/24/19 12:30 05/24/19 12:30 05/24/19 12:30 05/24/19 12:30 Course - Vital Signs Vital signs: Temp Pulse Resp BP Pulse Ox 98.0 F 104 H 16 143/83 H 97 05/24/19 12:30 05/24/19 12:30 05/24/19 12:30 05/24/19 12:30 05/24/19 12:30 Doctor's Discharge - Discharge Referrals: KEN BENITEZ MD [Primary Care Provider] - Follow up as needed
[2019-05-24 13:06] LABS: ABSOLUTE EOSINOPHILS # (AUTO) 0.1 10^3/uL (0.0-0.6); ABSOLUTE LYMPHOCYTES (AUTO) 2.2 10^3/uL (0.5-4.7); ABSOLUTE MONOCYTES (AUTO) 0.6 10^3/uL (0.1-1.4); ABSOLUTE NEUT (AUTO) 2.3 10^3/uL (1.7-8.2); BASOPHILS % (AUTO) 0.6 % (0-2); HEMATOCRIT 43.4 % (37.9-51.0); HEMOGLOBIN 14.8 g/dL (13.5-17.0); LYMPHOCYTES % (AUTO) 42.9 % (13-45); MEAN CORPUSCULAR HEMOGLOBIN 28.7 pg (27.0-33.4); MEAN CORPUSCULAR HGB CONC 34.1 g/dL (32.0-36.0); MEAN CORPUSCULAR VOLUME 84 fl (80-97); MONOCYTES % (AUTO) 11.2 % (3-13); PLATELET COUNT 247 10^3/uL (150-450); RED BLOOD COUNT 5.16 10^6/uL (4.35-5.55); RED CELL DISTRIBUTION WIDTH 13.1 % (11.5-14.0); SEGMENTED NEUTROPHILS % (AUTO) 44.3 % (42-78); TOTAL CELLS COUNTED % (AUTO) 100 %; WHITE BLOOD COUNT 5.2 10^3/uL (4.0-10.5)
[2019-05-24 13:27] LABS: ALBUMIN 4.4 g/dL (3.5-5.0); ALKALINE PHOSPHATASE 52 U/L (38-126); ANION GAP 8 (5-19); ASPARTATE AMINO TRANSFERASE 34 U/L (17-59); BILIRUBIN,DIRECT 0.3 mg/dL (0.0-0.4); BILIRUBIN,TOTAL 0.6 mg/dL (0.2-1.3); BLOOD UREA NITROGEN 16 mg/dL (7-20); CALCIUM 9.7 mg/dL (8.4-10.2); CARBON DIOXIDE 32 mmol/L (22-30); CHLORIDE 98 mmol/L (98-107); GLUCOSE 91 mg/dL (75-110); POTASSIUM 4.6 mmol/L (3.6-5.0); TOTAL PROTEIN 7.7 g/dL (6.3-8.2)
--- NOTE | 2019-05-24 13:34 | RADIOLOGY REPORT (SQ) ---
EXAM DESCRIPTION: CHEST SINGLE VIEW COMPLETED DATE/TIME: 05/24/2019 1:07 pm REASON FOR STUDY: chest pain COMPARISON: PA and lateral views of the chest from 05/26/2016 EXAM PARAMETERS: NUMBER OF VIEWS: One view. TECHNIQUE: An AP view of the chest was obtained. RADIATION DOSE: NA LIMITATIONS: None. FINDINGS: LUNGS AND PLEURA: Low inspiratory lung volumes without a superimposed consolidation, pleur al effusion or pneumothorax. MEDIASTINUM AND HILAR STRUCTURES: No mediastinal or hilar contour abnormality. HEART AND VASCULAR STRUCTURES: The cardiac silhouette and pulmonary vasculature are within normal yepez its. BONES: No acute findings. HARDWARE: None in the chest. OTHER: No other finding. IMPRESSION: No acute cardiopulmonary process. TECHNICAL DOCUMENTATION: JOB ID: [id number] [employer]- All Rights Reserved Reading location - IP/workstation name: [email or web address]
--- NOTE | 2019-05-24 18:09 | EKG REPORT ---
SEVERITY:- ABNORMAL ECG - SINUS TACHYCARDIA PROBABLE LEFT ATRIAL ABNORMALITY LEFT ANTERIOR FASCICULAR BLOCK : Confirmed by: Penny Up MD 24-May-2019 18:09:15
== END 2019-05-24 15:46 | disposition left against medical advice (07) ==
LOC: ER 11:43
DX: Z53.21 Procedure and treatment not carried out due to patient leaving prior to being seen by health care provider (principal); R07.9 Chest pain, unspecified; I10 Essential (primary) hypertension; J45.909 Unspecified asthma, uncomplicated
CPT/HCPCS: 36415; 71045; 80053; 83735; 84484; 85025; 93005; 93010; 99281

== ENCOUNTER → 2020-03-28 | Outpatient (CLI) | payer MEDICAID, OTHER ==
[2020-03-28 15:43] LABS: APPEARANCE,URINE CLEAR; BILIRUBIN,URINE NEGATIVE (NEGATIVE); COLOR,URINE YELLOW; GLUCOSE, URINE NEGATIVE (NEGATIVE); KETONES,URINE NEGATIVE (NEGATIVE); LEUKOCYTE ESTERASE,URINE NEGATIVE (NEGATIVE); NITRITE,URINE NEGATIVE (NEGATIVE); PROTEIN,URINE 100 mg/dL (NEGATIVE); URINE SPECIFIC GRAVITY 1.019; UROBILINOGEN,URINE NEGATIVE mg/dL (<2.0)
[2020-03-28 16:01] LABS: ALBUMIN 4.5 g/dL (3.5-5.0); ALKALINE PHOSPHATASE 65 U/L (38-126); ANION GAP 8 (5-19); ASPARTATE AMINO TRANSFERASE 32 U/L (17-59); BILIRUBIN,DIRECT 0.2 mg/dL (0.0-0.4); BILIRUBIN,TOTAL 0.5 mg/dL (0.2-1.3); BLOOD UREA NITROGEN 14 mg/dL (7-20); CALCIUM 9.7 mg/dL (8.4-10.2); CARBON DIOXIDE 28 mmol/L (22-30); CHLORIDE 103 mmol/L (98-107); CHOLESTEROL 230.42 mg/dL (0-200); GLUCOSE 106 mg/dL (75-110); POTASSIUM 4.7 mmol/L (3.6-5.0); TOTAL PROTEIN 7.9 g/dL (6.3-8.2); TRIGLYCERIDES 197 mg/dL (<150)
[2020-03-28 16:17] LABS: DIRECT LDL 158 mg/dL (<100)
[2020-03-28 16:41] LABS: VLDL CHOLESTEROL 39.4 mg/dL (10-31)
== END ==
LOC: OD 14:39
PROVIDERS: ATTEND Family Medicine
DX: Z12.5 Encounter for screening for malignant neoplasm of prostate (principal); I10 Essential (primary) hypertension; E78.2 Mixed hyperlipidemia
CPT/HCPCS: 36415; 80053; 80061; 81001; 84153